=== PATIENT | female | born 1980 | race Caucasian/White ===

== ENCOUNTER 2020-09-05 14:43 | Emergency (ER) | payer BC ==
[2020-09-05] MEDS ORDERED: Metoclopramide HCl 10 MG/2 ML VIAL ONE (15:55)
[2020-09-05] MEDS ORDERED: diphenhydrAMINE 50 MG/ML VIAL ONE (15:55)
[2020-09-05] MEDS ORDERED: Ketorolac Tromethamine 30 MG/ML VIAL ONE (15:55)
== END 2020-09-05 17:32 | disposition home or self-care (01) ==
LOC: CSHERS 14:43
DX: R51.9 Headache, unspecified (principal)
CPT/HCPCS: 96374; 96375; J1200; J1885; J2765

== ENCOUNTER 2022-03-01 09:58 | Outpatient (CLI) | payer BC | END 2022-03-01 09:59 | disposition home or self-care (01) | LOC: CSHMAMMO 09:58 | PROVIDERS: ATTEND Family Medicine | DX: Z12.31 Encounter for screening mammogram for malignant neoplasm of breast (principal) | CPT/HCPCS: 77063; 77067 ==